=== PATIENT | female | born 1950 ===

== ENCOUNTER 2018-08-16 10:18 | Outpatient (CLI) | payer MEDICARE, MEDICAID | END 2018-08-16 10:19 | disposition home or self-care (01) | LOC: C.PAT 10:18 | DX: Z01.818 Encounter for other preprocedural examination (principal); D25.9 Leiomyoma of uterus, unspecified; N84.0 Polyp of corpus uteri ==

== ENCOUNTER 2018-08-21 06:11 | Day surgery (SDC) | payer MEDICARE, MEDICAID ==
[2018-08-21 06:34] VITALS: BMI 34.9
[2018-08-21] MEDS ORDERED: Propofol 10 mg/ml Inj (20 ML) ONE (07:32)
[2018-08-21] MEDS ORDERED: Midazolam 2 MG/2 ML VIAL ONE (07:32)
[2018-08-21] MEDS ORDERED: ceFOXitin IV 1 gm/100 ml in NS 0 GM/0 ML BAG ONE (07:43)
[2018-08-21] MEDS ORDERED: ceFAZolin 1 gm in NS 1 GM/100 ML BAG IVPB ONE (07:43)
[2018-08-21] MEDS ORDERED: Neostigmine 1:1000 (1 mg/ml) Inj ONE (08:04)
[2018-08-21] MEDS: HYDROmorphone 0.5 mg/0.5 ml ISec IVP PRN ×2 (08:55→09:15)
[2018-08-21] MEDS ORDERED: HYDROmorphone 0.5 mg/0.5 ml ISec IVP PRN (09:21)
[2018-08-21 11:11] VITALS: O2SAT 95
[2018-08-21 11:12] VITALS: BP 118/66; PULSE 77; RESP 16; TEMP 97.9
--- NOTE | 2018-08-21 18:35 | OP ---
PROCEDURE DATE: 08/21/2018 PREOPERATIVE DIAGNOSIS: Endometrial polyps/myoma. POSTOPERATIVE DIAGNOSIS: Endometrial polyps/myoma. PROCEDURE: Hysteroscopy, hysteroscopic myomectomy, and polypectomy. FINDINGS: 2 cm anterior submucosal myoma/polyp. The remainder of the endometrial cavity is normal with normal tubal ostia and normal endocervical canal. SURGEON: Vikas Flood MD ANESTHESIA: General. ESTIMATED BLOOD LOSS: 1 mL. COMPLICATIONS: Nil. DESCRIPTION OF THE PROCEDURE: After the risks, benefits, and alternatives of the planned procedures including, but not limited to infection, hemorrhage, deep vein thrombosis, atelectasis, pneumonia, pulmonary embolism, damage to the bladder, damage to the ureter, renal failure, wound infection, wound dehiscence, incisional hernia, keloid formation, damage to large and small intestines, damage to inferior vena cava and aorta requiring extensive repair, anesthesia complications, electrolyte imbalance, possibility of , fluid overload, cerebral edema, embolism, and other complications that were discussed, but are not listed above have been explained to the patient and all her questions were answered, informed consent was obtained. The patient was taken to the operating room in a stable condition. Under a suitable level of general anesthesia, she was prepped and draped in a sterile fashion after having been placed in a dorsal lithotomy position. Bladder was emptied by a straight catheterization. Examination under anesthesia revealed a normal-size uterus, anteverted with no adnexal masses. A weighted speculum was inserted into the vagina. The anterior lip of the cervix was grasped using a single-tooth tenaculum. An endocervical curettage was performed and scant tissue was obtained. The uterus was sounded to 7 cm. The cervix was dilated to a #16 Hanks dilator. Hysteroscope was inserted into the uterus, and using a MyoSure device, the anterior submucosal myoma/polyp was resected up to the level of the endometrium. Good hemostasis and endometrial curettage was performed. Scant tissue was obtained. Instruments were then removed from the vagina, there was good hemostasis. FloSeal was applied to the excision site and instruments were removed from the vagina. The patient was then transferred to the recovery room in a stable condition. Pad and instrument counts were correct x2. There were no complications. Vikas Flood MD
== END 2018-08-21 11:00 | disposition home or self-care (01) ==
LOC: C.SDS 06:11
PROVIDERS: ATTEND Obstetrics & Gynecology Reproductive Endocrinology
DX: N84.0 Polyp of corpus uteri (principal); I10 Essential (primary) hypertension; K64.9 Unspecified hemorrhoids; G89.29 Other chronic pain; M54.5 Low back pain; J98.11 Atelectasis; Z90.49 Acquired absence of other specified parts of digestive tract; Z98.890 Other specified postprocedural states; Z79.899 Other long term (current) drug therapy
CPT/HCPCS: 36415; 58558; 86850; 86900; 88305; C2615; J0690; J1170; J2250; J2704; J2710; J3010